=== PATIENT | female | born 1955 | race Caucasian/White ===

== ENCOUNTER 2020-10-01 17:16 | Emergency (ER) | payer OTHER ==
[~2020-10-01] VITALS: Ht 172.7 cm; Wt 83.9 kg
[2020-10-01 17:33] VITALS: BP 149/67
--- NOTE | 2020-10-01 17:41 | NUR ---
64 YEAR OLD FEMALE BIBA FROM HOME FOR COMPLAINS OF ABDOMINAL PAIN X MORNING. PT STATES SHE HAD MEDICATION ANTIBIOTIC FROM DENTAL OFFICE VISIT IN MORNING AND IS UNSURE IF RELATED. PT DENIES NAUSEA, VOMITTING, DIARRHEA. BOWEL SOUNDS ACTIVE X4, NORMOACTIVE, NONTENDER. PT AOX4, BREATHING EVEN AND UNLABORED, SKIN WARM AND DRY. BED IN LOWEST POSITION, LOCKED, BED RAIL UPX1. PMH - HTN, GALLBLADER REMOVAL ALLERGIES - NKA
[2020-10-01] MEDS ORDERED: ONDANSETRON 4 MG/2 ML VIAL IVP ONE (18:00)
[2020-10-01] MEDS ORDERED: NACL 0.9% 1,000 ML IV ONE (18:00)
[2020-10-01] MEDS ORDERED: MORPHINE SULFATE 4 MG/ML SYR IVP ONE ×2 (18:00→20:25)
[2020-10-01 18:30] LABS: BASOPHILS % (AUTO) 0.2 % (0.0-2.0); EOSINOPHILS % (AUTO) 0.1 % (0.0-4.0); HEMATOCRIT 41.4 % (36-48); HEMOGLOBIN 13.6 g/dL (12.0-16.0); LYMPHOCYTES # (AUTO) 1.3 K/uL (2.5-16.5); LYMPHOCYTES % (AUTO) 7.5 % (20.5-51.1); MEAN CORPUSCULAR HEMOGLOBIN 29 pg (27-31); MEAN CORPUSCULAR HGB CONC 33 g/dL (33-37); MEAN CORPUSCULAR VOLUME 89.2 fL (80-94); MONOCYTES # (AUTO) 0.4 K/uL (0.8-1.0); MONOCYTES % (AUTO) 2.5 % (1.7-9.3); NEUTROPHILS # (AUTO) 15.5 K/uL (1.8-7.7); NEUTROPHILS % (AUTO) 89.7 % (42.2-75.2); PLATELET COUNT (AUTO) 274 K/uL (140-450); RED BLOOD CELL COUNT(AUTO) 4.64 MIL/uL (4.20-5.40); RED CELL DISTRIBUTION WIDTH 13.8 % (11.6-13.7); WHITE BLOOD COUNT (AUTO) 17.3 K/uL (4.8-10.8)
--- NOTE | 2020-10-01 18:30 | NUR ---
CONSENT SIGNED FOR CT SCAN WITH CONTRAST BY PT, VERBALIZES UNDERSTANDING
[2020-10-01 18:45] LABS: ALBUMIN 4.3 g/dL (3.4-5.0); CARBON DIOXIDE 28.3 mmol/L (21-32); CREATININE 0.8 mg/dL (0.6-1.3); POTASSIUM 4.3 mmol/L (3.5-5.1); TOTAL BILIRUBIN 0.5 mg/dL (0.0-1.0)
--- NOTE | 2020-10-01 19:13 | NUR ---
PT ALERT AND AWAKE, BREATHING EVEN AND UNLABORED, NO DISTRESS NOTED. ALL NEEDS MET AT THIS TIME.
[2020-10-01 19:42] LABS: APPEARANCE,URINE CLEAR (CLEAR); BILIRUBIN,URINE NEGATIVE (NEGATIVE); BLOOD, URINE TRACE-I (NEGATIVE); COLOR,URINE YELLOW (YELLOW); LEUKOCYTE ESTERASE ,URINE 1+ (NEGATIVE); NITRITE, URINE NEGATIVE (NEGATIVE); UGLUCOSE NEGATIVE (NEGATIVE)
[2020-10-01] MEDS ORDERED: PIPERACILLIN/TAZOBACTAM 4.5 GM in DEXTROSE 5% 100 ML IV ONE (19:55)
[2020-10-01] MEDS ORDERED: PIPERACILLIN/TAZOBACTAM 4.5 GM VIAL IV ONE (20:31)
--- NOTE | 2020-10-01 20:44 | NUR ---
covid swab collected and sent to lab.
--- NOTE | 2020-10-01 20:54 | NUR ---
US at bedside.
--- NOTE | 2020-10-01 21:50 | NUR ---
US at bedside again.
--- NOTE | 2020-10-01 23:39 | NUR ---
NAD at this time. daughter at bedside. VSS
--- NOTE | 2020-10-02 00:32 | NUR ---
pt currently asleep. visible chest rise and fall. NAD this time.
--- NOTE | 2020-10-02 03:40 | NUR ---
pt currently reports increased headache and abdominal pain. Dr. Tejeda made aware.
[2020-10-02] MEDS ORDERED: KETOROLAC 15 MG/ML VIAL ONE (03:49)
--- NOTE | 2020-10-02 04:52 | NUR ---
report given to Daria DALAL from [facility] unit at [facility]. pt will be admitted under the care of Dr. Dejesus. will be going to room 308B.
[2020-10-02] MEDS ORDERED: KETOROLAC 30 MG/ML VIAL IVP ONE (04:55)
--- NOTE | 2020-10-02 05:32 | NUR ---
report given to Lew Charge nurse. Change of room made. pt will be admitted to [facility] under the care of Dr Violeta Nesbitt in room 513B. being transferred for acute appendicitis and reason of insurance request.
[2020-10-02 06:46] VITALS: BP 132/66
--- NOTE | 2020-10-02 06:46 | NUR ---
NAD at this time. spouse at bedside. currently awaiting transport.
--- NOTE | 2020-10-02 07:08 | NUR ---
[facility] TRANSPORT AT BEDSIDE
--- NOTE | 2020-10-02 07:11 | NUR ---
[facility] unit [address] [facility] Antoinette arrived. report given. pt will transferred to [facility] under the care of Dr. Nesbitt. report given to Charge nurse Lew. pt currently a/o x 4 ,gcs 15 . amb w assist. IV site patent. VSS
== END 2020-10-02 07:12 | disposition short-term general hospital (02) ==
LOC: MED 17:16
DX: K35.80 Unspecified acute appendicitis (principal); N83.201 Unspecified ovarian cyst, right side; I10 Essential (primary) hypertension; Z90.49 Acquired absence of other specified parts of digestive tract; Z20.822 Contact with and (suspected) exposure to COVID-19
CPT/HCPCS: 36415; 74177; 76856; 80053; 81001; 83690; 84484; 85025; 87086; 87426; 93976; 96361; 96365; 96375; 96376; 99285; J1885; J2270; J2405; J2543; J7030; Q9967